=== PATIENT | female | born 1995 | race Caucasian/White ===

== ENCOUNTER 2018-01-26 02:55 | Emergency (ER) | payer OTHER ==
[~2018-01-26] VITALS: Ht 170.2 cm; Wt 87.8 kg
[2018-01-26] MEDS ORDERED: ONDANSETRON PF 4 MG/2 ML VIAL. ONE (03:03)
[2018-01-26] MEDS ORDERED: THIAMINE 200 MG/2 ML VIAL. IV ONE (03:03)
--- NOTE | 2018-01-26 03:03 | ED.ADGEN ---
Past History Past Medical History: No Pertinent History Past Surgical History: No Surgical History Smoking: Non-smoker Alcohol Use: None Drug Use: None Adult General Chief Complaint Chief Complaint " I ve been drink '[place]' tonight.. and when I got home I vomited once...My parents called the ambulance...because the vomit was yellow colored...." HPI HPI Patient is a 22 year old female who presents with hx of nausea and vomit x 1 after drinking ETOH tonight. Pt. has mild up gastric discomfort. No hx of trauma, bad food, travel or ill contacts. Pt. currently states she feels better after the one episode of vomiting. Pt. normally healthy. No other complaints. Review of Systems Review of Systems Constitutional: Denies fever or chills [] Eyes: Denies change in visual acuity, redness, or eye pain [] HENT: Denies nasal congestion or sore throat [] Respiratory: Denies cough or shortness of breath [] Cardiovascular: No additional information not addressed in HPI [] GI: A gastric abdominal pain, nausea, vomiting. Denies, bloody stools or diarrhea [] : Denies dysuria or hematuria [] Musculoskeletal: Denies back pain or joint pain [] Integument: Denies rash or skin lesions [] Neurologic: Denies headache, focal weakness or sensory changes [] Endocrine: Denies polyuria or polydipsia [] All other systems were reviewed and found to be within normal limits, except as documented in this note. Family History Family History Noncontributory Current Medications Current Medications Current Medications Medications (Trade) Dose Ordered Sig/Brandi Start Time Stop Time Status Last Admin Dose Admin Famotidine (Pepcid Vial) 20 mg 1X ONCE 01/26/18 03:30 01/26/18 03:31 DC 01/26/18 03:53 20 MG Magnesium Hydroxide (Milk Of Magnesia) 2,400 mg 1X ONCE 01/26/18 05:00 01/26/18 05:00 DC 01/26/18 04:48 2,400 MG Multivitamins/ Minerals 10 ml/ Folic Acid 1 mg/ Thiamine HCl 100 mg/Dextrose/ Lactated Ringer's 1,011.2 ml @ 1,000 mls/ hr 1X ONCE 01/26/18 03:30 01/26/18 04:30 DC 01/26/18 03:46 1,000 MLS/HR Ondansetron HCl (Zofran) 8 mg 1X ONCE 01/26/18 03:30 01/26/18 03:31 DC 01/26/18 03:47 8 MG Potassium Chloride (KCl Oral Soln) 40 meq 1X ONCE 01/26/18 05:00 01/26/18 05:00 DC 01/26/18 04:48 40 MEQ Thiamine HCl 200 mg STK-MED ONCE 01/26/18 03:03 01/26/18 03:04 DC Allergies Allergies Allergies Coded Allergies Type Severity Reaction Last Updated Verified No Known Drug Allergies 01/15/14 No Physical Exam Physical Exam Constitutional: Well developed, well nourished, no acute distress, intoxicated in appearance. [] HENT: Normocephalic, atraumatic, bilateral external ears normal, oropharynx moist, no oral exudates, nose normal. [] Eyes: PERRLA, EOMI, injected conjunctiva, no discharge. [] Neck: Normal range of motion, no tenderness, supple, no stridor. [] Cardiovascular:Heart rate regular rhythm, no murmur [] Lungs & Thorax: Bilateral breath sounds clear to auscultation [] Abdomen: Bowel sounds normal, soft, mild epigastric tenderness, no masses, no pulsatile masses. [] Skin: Warm, dry, no erythema, no rash. [] Back: No tenderness, no CVA tenderness. [] Extremities: No tenderness, no cyanosis, no clubbing, ROM intact, no edema. [] Neurologic: Alert and oriented X 3, normal motor function, normal sensory function, no focal deficits noted. Wide gait. Slurred speech. Mild dis coordination. Psychologic: Affect anxious, , judgement normal, mood normal. [] Current Patient Data Vital Signs Vital Signs Date Time Temp Pulse Resp B/P (MAP) Pulse Ox O2 Delivery O2 Flow Rate FiO2 01/26/18 04:55 75 16 119/64 (82) 99 Room Air 01/26/18 03:00 98.4 Lab Results Laboratory Tests Test 01/26/18 03:44 01/26/18 03:45 01/26/18 04:35 POC Urine HCG, Qualitative hcg negative (Negative) White Blood Count 7.2 x10^3/uL (4.0-11.0) Red Blood Count 4.61 x10^6/uL (3.50-5.40) Hemoglobin 14.2 g/dL (12.0-15.5) Hematocrit 40.9 % (36.0-47.0) Mean Corpuscular Volume 89 fL (79-100) Mean Corpuscular Hemoglobin 31 pg (25-35) Mean Corpuscular Hemoglobin Concent 35 g/dL (31-37) Red Cell Distribution Width 13.1 % (11.5-14.5) Platelet Count 192 x10^3/uL (140-400) Neutrophils (%) (Auto) 79 % (31-73) H Lymphocytes (%) (Auto) 14 % (24-48) L Monocytes (%) (Auto) 6 % (0-9) Eosinophils (%) (Auto) 2 % (0-3) Basophils (%) (Auto) 0 % (0-3) Neutrophils # (Auto) 5.7 x10^3uL (1.8-7.7) Lymphocytes # (Auto) 1.0 x10^3/uL (1.0-4.8) Monocytes # (Auto) 0.4 x10^3/uL (0.0-1.1) Eosinophils # (Auto) 0.1 x10^3/uL (0.0-0.7) Basophils # (Auto) 0.0 x10^3/uL (0.0-0.2) Sodium Level 140 mmol/L (136-145) Potassium Level 3.3 mmol/L (3.5-5.1) L Chloride Level 105 mmol/L (98-107) Carbon Dioxide Level 24 mmol/L (21-32) Anion Gap 11 (6-14) Blood Urea Nitrogen 10 mg/dL (7-20) Creatinine 0.5 mg/dL (0.6-1.0) L Estimated GFR (Cockcroft-Gault) 152.9 Glucose Level 108 mg/dL (70-99) H Calcium Level 8.7 mg/dL (8.5-10.1) Total Bilirubin 0.2 mg/dL (0.2-1.0) Direct Bilirubin 0.1 mg/dL (0.0-0.2) Aspartate Amino Transferase (AST) 61 U/L (15-37) H Alanine Aminotransferase (ALT) 70 U/L (14-59) H Alkaline Phosphatase 75 U/L (46-116) Total Protein 7.3 g/dL (6.4-8.2) Albumin 3.6 g/dL (3.4-5.0) Lipase 121 U/L (73-393) Ethyl Alcohol Level 78 mg/dL (0-10) H Urine Collection Type Unknown Urine Color Yellow Urine Clarity Hazy Urine pH 5.5 Urine Specific [place] 1.015 Urine Protein Neg (NEG-TRACE) Urine Glucose (UA) Neg mg/dL (NEG) Urine Ketones (Stick) Neg mg/dL (NEG) Urine Blood Large (NEG) Urine Nitrite Pos (NEG) Urine Bilirubin Neg (NEG) Urine Urobilinogen Dipstick 0.2 mg/dL (0.2 mg/dL) Urine Leukocyte Esterase Mod (NEG) Urine RBC 3-5 /HPF (0-2) Urine WBC 20-40 /HPF (0-4) Urine Squamous Epithelial Cells Few /LPF Urine Bacteria Many /HPF (0-FEW) Urine Opiates Screen Neg (NEG) Urine Methadone Screen Neg (NEG) Urine Barbiturates Neg (NEG) Urine Phencyclidine Screen (NEG) Urine Amphetamine/Methamphetamine Neg (NEG) Urine Benzodiazepines Screen Neg (NEG) Urine Cocaine Screen Neg (NEG) Urine Cannabinoids Screen Neg (NEG) Urine Ethyl Alcohol Pos (NEG) EKG EKG [] Radiology/Procedures Radiology/Procedures [] Course & Med Decision Making Course & Med Decision Making Pertinent Labs and Imaging studies reviewed. (See chart for details) Avoid alcohol use. Consider ETOH rehab. Clear fluid diet. Follow up with primary. Pt. reports marked reduction of symptoms at time of discharge. [] Final Impression Final Impression 1. Nausea and Vomiting 2. ETOH Abuse[] 3. Hypokalemia Problems: Dragon Disclaimer Dragon Disclaimer This electronic medical record was generated, in whole or in part, using a voice recognition dictation system. VICTORIANO TA MD Jan 26, 2018 03:03
[2018-01-26] MEDS ORDERED: FAMOTIDINE 20 MG/2 ML VIAL IVP ONE (03:30)
[2018-01-26] MEDS ORDERED: MVI, ADULT NO.4 WITH VIT K 10 ML, FOLIC ACID 1 MG, THIAMINE 100 MG in IV DEXTROSE 5%-LA... IV ONE ×4 (03:30)
[2018-01-26] MEDS ORDERED: ONDANSETRON PF 4 MG/2 ML VIAL. IV ONE (03:30)
[2018-01-26 03:59] LABS: BASO % 0 % (0-3); EOS # 0.1 x10^3/uL (0.0-0.7); EOS % 2 % (0-3); HEMATOCRIT 40.9 % (36.0-47.0); HEMOGLOBIN 14.2 g/dL (12.0-15.5); LYMPH % 14 % (24-48); MEAN CORPUSCULAR HEMOGLOBIN 31 pg (25-35); MEAN CORPUSCULAR HGB CONC 35 g/dL (31-37); MEAN CORPUSCULAR VOLUME 89 fL (79-100); MONO # 0.4 x10^3/uL (0.0-1.1); MONO % 6 % (0-9); NEUT # 5.7 x10^3uL (1.8-7.7); NEUT % 79 % (31-73); PLATELET COUNT 192 x10^3/uL (140-400); RED BLOOD COUNT 4.61 x10^6/uL (3.50-5.40); RED CELL DISTRIBUTION WIDTH 13.1 % (11.5-14.5); WHITE BLOOD COUNT 7.2 x10^3/uL (4.0-11.0)
[2018-01-26 04:14] LABS: ALBUMIN 3.6 g/dL (3.4-5.0); CALCIUM 8.7 mg/dL (8.5-10.1); CREATININE 0.5 mg/dL (0.6-1.0); DIRECT BILIRUBIN 0.1 mg/dL (0.0-0.2); GFR 152.9; POTASSIUM 3.3 mmol/L (3.5-5.1); TOTAL BILIRUBIN 0.2 mg/dL (0.2-1.0); TOTAL PROTEIN 7.3 g/dL (6.4-8.2)
[2018-01-26 04:54] LABS: AMPHETAMINE/METHAMPHETAMINE NEG (NEG); BARBITURATES NEG (NEG); BENZODIAZEPINES NEG (NEG); CANNABINOIDS NEG (NEG); COCAINE NEG (NEG); METHADONE NEG (NEG); OPIATES NEG (NEG)
[2018-01-26 04:55] VITALS: BP 119/64
[2018-01-26 04:57] LABS: BILIRUBIN,URINE NEG (NEG); CLARITY,URINE HAZY; COLOR,URINE YELLOW; GLUCOSE,URINE NEG (NEG); NITRITE,URINE POS (NEG); UROBILINOGEN,URINE 0.2 mg/dL (0.2 mg/dL)
[2018-01-26 04:58] LABS: BACTERIA,URINE MANY /HPF (0-FEW); SQUAMOUS EPITHELIAL CELL,UR FEW /LPF; WBC,URINE 20-40 /HPF (0-4)
[2018-01-26] MEDS ORDERED: POTASSIUM CHLORIDE 20 MEQ/15 ML ORAL LIQUID. PO ONE (05:00)
[2018-01-26] MEDS ORDERED: MAGNESIUM HYDROXIDE 2,400 MG/30 ML ORAL.SUSP. PO ONE (05:00)
== END 2018-01-26 04:58 | disposition home or self-care (01) ==
LOC: ER 02:55
DX: E87.6 Hypokalemia (principal); F10.10 Alcohol abuse, uncomplicated
CPT/HCPCS: 36415; 80048; 80076; 80307; 81001; 81025; 83690; 85025; 87086; 96365; 96375; 99284; G0480; J2405; S0028; G0479

== ENCOUNTER 2019-02-23 16:08 | Emergency (ER) | payer OTHER ==
[~2019-02-23] VITALS: Ht 170.2 cm; Wt 87.1 kg
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
[2019-02-23 17:12] LABS: BASO % 0 % (0-3); EOS # 0.2 x10^3/uL (0.0-0.7); EOS % 2 % (0-3); HEMATOCRIT 41.6 % (36.0-47.0); HEMOGLOBIN 14.3 g/dL (12.0-15.5); LYMPH # 1.2 x10^3/uL (1.0-4.8); LYMPH % 15 % (24-48); MEAN CORPUSCULAR HEMOGLOBIN 31 pg (25-35); MEAN CORPUSCULAR HGB CONC 34 g/dL (31-37); MEAN CORPUSCULAR VOLUME 91 fL (79-100); MONO # 0.4 x10^3/uL (0.0-1.1); MONO % 5 % (0-9); NEUT # 6.4 x10^3uL (1.8-7.7); NEUT % 78 % (31-73); PLATELET COUNT 231 x10^3/uL (140-400); RED BLOOD COUNT 4.56 x10^6/uL (3.50-5.40); RED CELL DISTRIBUTION WIDTH 12.7 % (11.5-14.5); WHITE BLOOD COUNT 8.3 x10^3/uL (4.0-11.0)
[2019-02-23 17:29] LABS: ALBUMIN/GLOBULIN RATIO 1.1 (1.0-1.7); CREATININE 0.5 mg/dL (0.6-1.0); GFR 150.3; POTASSIUM 3.8 mmol/L (3.5-5.1); TOTAL BILIRUBIN 0.3 mg/dL (0.2-1.0); TOTAL PROTEIN 7.6 g/dL (6.4-8.2)
[2019-02-23 17:41] LABS: BILIRUBIN,URINE NEG (NEG); CLARITY,URINE CLEAR; COLOR,URINE STRAW; GLUCOSE,URINE NEG (NEG)
[2019-02-23 17:42] LABS: BACTERIA,URINE 0 /HPF (0-FEW); NITRITE,URINE NEG (NEG); RBC,URINE OCC /HPF (0-2); SQUAMOUS EPITHELIAL CELL,UR OCC /LPF; UROBILINOGEN,URINE 1 mg/dL (0.2 mg/dL)
[2019-02-23 17:44] LABS: BARBITURATES NEG (NEG); BENZODIAZEPINES NEG (NEG); CANNABINOIDS NEG (NEG); COCAINE NEG (NEG); METHADONE NEG (NEG); OPIATES NEG (NEG); PHENCYCLIDINE NEG (NEG)
[2019-02-23 17:46] LABS: AMPHETAMINE/METHAMPHETAMINE NEG (NEG)
[2019-02-23 17:59] LABS: U PREG PATIENT NEGATIVE (NEG)
[2019-02-24] VITALS: BP 122/81
== END 2019-02-24 14:45 ==
LOC: ER 16:08
DX: R44.0 Auditory hallucinations (principal); R45.850 Homicidal ideations; R45.851 Suicidal ideations
CPT/HCPCS: 36415; 80053; 80307; 81001; 81025; 85025; 99285; G0480

== ENCOUNTER 2019-05-25 17:48 | Emergency (ER) | payer MEDICAID, OTHER ==
[~2019-05-25] VITALS: Ht 170.2 cm; Wt 84.9 kg
[2019-05-25 17:50] VITALS: BP 123/90
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
[2019-05-25] MEDS ORDERED: IV RINGERS SOLUTION,LACTATED 1,000 ML IV SCH (18:03)
[2019-05-25] MEDS ORDERED: FAMOTIDINE 20 MG/2 ML VIAL IVP ONE (18:15)
[2019-05-25] MEDS ORDERED: ONDANSETRON PF 4 MG/2 ML VIAL. IV ONE (18:15)
[2019-05-25 19:35] LABS: BASO % 1 % (0-3); EOS # 0.2 x10^3/uL (0.0-0.7); EOS % 3 % (0-3); HEMATOCRIT 39.7 % (36.0-47.0); HEMOGLOBIN 13.7 g/dL (12.0-15.5); LYMPH # 1.6 x10^3/uL (1.0-4.8); LYMPH % 23 % (24-48); MEAN CORPUSCULAR HEMOGLOBIN 32 pg (25-35); MEAN CORPUSCULAR HGB CONC 35 g/dL (31-37); MEAN CORPUSCULAR VOLUME 92 fL (79-100); MONO # 0.3 x10^3/uL (0.0-1.1); MONO % 4 % (0-9); NEUT # 4.9 x10^3uL (1.8-7.7); NEUT % 70 % (31-73); PLATELET COUNT 213 x10^3/uL (140-400); RED BLOOD COUNT 4.33 x10^6/uL (3.50-5.40); RED CELL DISTRIBUTION WIDTH 12.6 % (11.5-14.5)
[2019-05-25 20:04] LABS: ALBUMIN 3.8 g/dL (3.4-5.0); CALCIUM 8.7 mg/dL (8.5-10.1); CREATININE 0.7 mg/dL (0.6-1.0); DIRECT BILIRUBIN 0.1 mg/dL (0.0-0.2); POTASSIUM 3.4 mmol/L (3.5-5.1); TOTAL BILIRUBIN 0.3 mg/dL (0.2-1.0); TOTAL PROTEIN 7.6 g/dL (6.4-8.2)
== END 2019-05-25 20:20 | disposition left against medical advice (07) ==
LOC: ER 17:48
DX: O9A.211 Injury, poisoning and certain other consequences of external causes complicating pregnancy, first trimester (principal); R10.9 Unspecified abdominal pain; O99.281 Endocrine, nutritional and metabolic diseases complicating pregnancy, first trimester; E87.6 Hypokalemia; Z3A.01 Less than 8 weeks gestation of pregnancy; W22.8XXA Striking against or struck by other objects, initial encounter; Y93.89 Activity, other specified; Y92.89 Other specified places as the place of occurrence of the external cause; Y99.8 Other external cause status
CPT/HCPCS: 80048; 80076; 82150; 82550; 83690; 84484; 84702; 85025; 85610; 85730; 86592; 86703; 86705; 86709; 86803; 86900; 86901; 87340; 87491; 87591; 99284; Q0111; 99285

== ENCOUNTER 2021-04-05 22:22 | Emergency (ER) | payer MEDICAID ==
[~2021-04-05] VITALS: Ht 170.2 cm; Wt 84.9 kg
[2021-04-05 22:34] VITALS: BP 129/85
--- NOTE | 2021-04-05 22:50 | PHYS DOC ---
Past History Past Medical History: No Pertinent History Past Surgical History: Cholecystectomy Smoking: Non-smoker Alcohol Use: Occasionally Drug Use: Marijuana General Adult EDM: Chief Complaint: EARACHE/EAR PAIN HPI: HPI: ".. I was cleaning my ears. they are itching.. and now they hurt.. " Patient is a 26 year old female who presents with above hx and complaints of ear pain. Patient recently had attempting to remove wax with Q-tips. Patient has excoriations of both ear canals. No recent travel. No severe ill contacts. Normally healthy. No history of immunosuppression. Review of Systems: Review of Systems: Constitutional: Denies fever or chills Eyes: Denies change in visual acuity HENT: Denies nasal congestion or sore throat. Complains of bilateral ear pain Respiratory: Denies cough or shortness of breath Cardiovascular: Denies chest pain or edema GI: Denies abdominal pain, nausea, vomiting, bloody stools or diarrhea : Denies dysuria Musculoskeletal: Denies back pain or joint pain Integument: Denies rash Neurologic: Denies headache, focal weakness or sensory changes Endocrine: Denies polyuria or polydipsia Lymphatic: Denies swollen glands Psychiatric: Denies depression or anxiety Family History: Family History: Noncontributory presentation Current Medications: Current Meds: See [facility] meds Allergies: Allergies: Allergies Coded Allergies Type Severity Reaction Last Updated Verified No Known Drug Allergies 01/15/14 No Physical Exam: PE: Constitutional: Well developed, well nourished, no acute distress, non-toxic appearance. [] HENT: Normocephalic, atraumatic, bilateral external ears normal, oropharynx moist, no oral exudates, nose normal. [] Eyes: PERRLA, EOMI, conjunctiva normal, no discharge. [] Neck: Normal range of motion, no tenderness, supple, no stridor. [] Cardiovascular:Heart rate regular rhythm, no murmur [] Lungs & Thorax: Bilateral breath sounds clear to auscultation [] Abdomen: Bowel sounds normal, soft, no tenderness, no masses, no pulsatile masses. [] Skin: Warm, dry, no erythema, no rash. [] Back: No tenderness, no CVA tenderness. [] Extremities: No tenderness, no cyanosis, no clubbing, ROM intact, no edema. [] Neurologic: Alert and oriented X 3, normal motor function, normal sensory function, no focal deficits noted. [] Psychologic: Affect normal, judgement normal, mood normal. [] Current Patient Data: Vital Signs: Vital Signs Date Time Temp Pulse Resp B/P (MAP) Pulse Ox O2 Delivery O2 Flow Rate FiO2 04/05/21 22:34 98.6 76 18 129/85 (100) 100 Room Air EKG: EKG: [] Radiology/Procedures: Radiology/Procedures: [] Heart Score: C/O Chest Pain: N/A Risk Factors: Risk Factors: DM, Current or recent (<one month) smoker, HTN, HLP, family history of CAD, obesity. Risk Scores: Score 0 - 3: 2.5% MACE over next 6 weeks - Discharge Home Score 4 - 6: 20.3% MACE over next 6 weeks - Admit for Clinical Observation Score 7 - 10: 72.7% MACE over next 6 weeks - Early Invasive Strategies Course & Med Decision Making: Course & Med Decision Making Pertinent Labs and Imaging studies reviewed. (See chart for details) Patient stop using Q-tips on ears. Use Cortisporin drops 2 drops 4 times a day. Follow-up primary care. Have them rechecked as secretions in canal. Return if any concerns. Impression: 1. Bilateral ear pain from external excoriations/otitis [] Dragon Disclaimer: Dragon Disclaimer: This electronic medical record was generated, in whole or in part, using a voice recognition dictation system. Departure Departure: Referrals: ROSIE CHU MD (PCP) Kushal Disclaimer This chart was dictated in whole or in part using Voice Recognition software in a busy, high-work load, and often noisy Emergency Department environment. It may contain unintended and wholly unrecognized errors or omissions. VICTORIANO TA MD Apr 05, 2021 22:50
[2021-04-05] MEDS ORDERED: NEOMYCIN/POLYMYXIN/HC OTIC SUSPENSION 10ML BOTTLE. AU ONE (23:00)
== END 2021-04-05 23:11 | disposition home or self-care (01) ==
LOC: ER 22:22
DX: H92.03 Otalgia, bilateral (principal); F12.10 Cannabis abuse, uncomplicated; Z90.49 Acquired absence of other specified parts of digestive tract
CPT/HCPCS: 99283-25

== ENCOUNTER 2021-10-25 17:38 | Emergency (ER) | payer MEDICAID | END 2021-10-25 19:00 | disposition left against medical advice (07) | LOC: ER 17:38 | DX: T78.03XA Anaphylactic reaction due to other fish, initial encounter (principal); Z53.21 Procedure and treatment not carried out due to patient leaving prior to being seen by health care provider ==